=== PATIENT | female | born 1980 | race Caucasian/White ===

== ENCOUNTER 2017-01-09 00:03 | Emergency (ER) | payer BC ==
[2017-01-09 00:46] VITALS: BP 109/73; TEMP 100.8; O2SAT 97
--- NOTE | 2017-01-09 01:10 | ED.PDOC ---
History of Present Illness - General Chief Complaint: Fever Time Seen by Provider: 01/09/17 01:04 Source: patient Exam Limitations: no limitations Additional Information: N/V/D, WATERY, NO BLOOD, LOW GRADE FEVER. IS DRIVING NO RIDE. - History of Present Illness Timing/Duration: other - TODAY Severity: moderate Worsening Factors: nothing Associated Symptoms: nausea/vomiting Allergies/Adverse Reactions: Allergies Sulfa Drugs Allergy (Verified 04/15/15 06:44) Home Medications: Ambulatory Orders Ondansetron [Zofran Odt] 4 mg PO TID PRN #6 tab 01/09/17 Review of Systems - Review of Systems Constitutional: Denies: chills, fever EENTM: Denies: eye pain, blurred vision Respiratory: Denies: cough, short of breath Cardiology: Denies: chest pain, palpitations Gastrointestinal/Abdominal: States: abdominal pain, diarrhea, nausea, vomiting, other - WATERY, NO BLOOD Genitourinary: Denies: dysuria, hematuria Musculoskeletal: Denies: back pain, neck pain Neurological: States: no symptoms reported Endocrine: States: no symptoms reported Hematologic/Lymphatic: States: no symptoms reported Past Medical History (General) - Patient Medical History Hx Seizures: No Hx Stroke: No Hx Asthma: No Hx of COPD: No Hx Cardiac Disorders: No Hx Congestive Heart Failure: No Hx Pacemaker: No Hx Hypertension: No Hx Diabetes: No Hx Renal Disease: No Hx MRSA: No Hx Other - free text: ADHD Surgical History: no surgical history - Vaccination History Hx Tetanus, Diphtheria Vaccination: No Hx Influenza Vaccination: No Hx Pneumococcal Vaccination: No Immunizations Up to Date: No - Social History Hx Tobacco Use: No Hx Alcohol Use: Yes Hx Substance Use: No Hx Substance Use Treatment: No Hx Depression: No Hx Physical Abuse: No Hx Emotional Abuse: No - Female History Patient is a Female of Child Bearing Age (10 -59 yrs old): No Hx Last Menstrual Period: 04/05/15 Patient : No Expected Date of Delivery:: 03/10/14 Family Medical History - Family History Mother Family History: Unknown Living Status: Still Living Hx Family Diabetes: Yes Paternal Grandparents Hx Family Diabetes: Yes Physical Exam - Physical Exam General Appearance: Alert, No apparent distress, Other - APPEARS NOT TO FEEL WELL Eye Exam: bilateral normal Ears, Nose, Throat: hearing grossly normal, normal ENT inspection, other - MM SL DRY Neck: non-tender, supple Respiratory: lungs clear, normal breath sounds, no respiratory distress Cardiovascular/Chest: regular rate, rhythm, no murmur Gastrointestinal/Abdominal: non tender, soft, no organomegaly, other - BS SL HYPER Back Exam: normal inspection, no CVA tenderness, no vertebral tenderness Extremity: normal range of motion, non-tender, normal inspection Neurologic: alert, normal mood/affect Skin Exam: normal color, warm/dry Lymphatic: no adenopathy Progress - Progress Progress: 01/09/17 04:01 NO FURTHER VOMITING OR DIARRHEA, FEELS BETTER, VSS. Departure - Departure Clinical Impression: Gastroenteritis and colitis, viral, Dehydration Time of Disposition: 04:02 Disposition: Discharge to Home or Self Care Condition: Good Departure Forms: ED Discharge - Pt. Copy, Patient Portal Self Enrollment Instructions: DI for Viral Gastroenteritis -- Adult Prescriptions: Ondansetron [Zofran Odt] 4 mg PO TID PRN #6 tab PRN Reason: Nausea/Vomiting Home Medications: Ambulatory Orders Ondansetron [Zofran Odt] 4 mg PO TID PRN #6 tab 01/09/17
[2017-01-09] MEDS ORDERED: METOCLOPRAMIDE HCL INJ 10 MG/2 ML VIAL IV ONE (01:15)
[2017-01-09] MEDS ORDERED: SODIUM CHLORIDE 0.9% 1000ML 1,000 ML IVS ONE (01:15)
== END 2017-01-09 04:11 | disposition home or self-care (01) ==
LOC: ER 00:03
DX: A08.4 Viral intestinal infection, unspecified (principal); E86.0 Dehydration
CPT/HCPCS: 80048; 85025; J2765; J7030

== ENCOUNTER → 2017-10-25 | Outpatient (CLI) | payer BC | END | disposition home or self-care (01) | LOC: GMAL 10:22 | PROVIDERS: ATTEND Family Medicine | DX: Z00.00 Encounter for general adult medical examination without abnormal findings (principal) ==

== ENCOUNTER → 2018-01-24 | Outpatient (CLI) | payer BC | LOC: GMAL 11:05 | PROVIDERS: ATTEND Family Medicine | DX: D50.8 Other iron deficiency anemias (principal); E55.9 Vitamin D deficiency, unspecified ==

== ENCOUNTER → 2018-01-25 | Outpatient (CLI) | payer BC | LOC: GMAL 12:44 | PROVIDERS: ATTEND Family Medicine | DX: N30.00 Acute cystitis without hematuria (principal) ==

== ENCOUNTER 2018-10-08 16:53 | Emergency (ER) | payer BC ==
[2018-10-08] MEDS ORDERED: KETOROLAC TROMETHAMINE INJ 30 MG/ML VIAL IV ONE (17:22)
[2018-10-08] MEDS ORDERED: PROMETHAZINE HCL INJ 12.5 MG in SODIUM CHLORIDE 0.9% 50ML 50 ML IVPB ONE (17:23)
--- NOTE | 2018-10-08 17:27 | ED.PDOC ---
History of Present Illness - General Chief Complaint: GI Problem Stated Complaint: N/V, headache Time Seen by Provider: 10/08/18 17:14 Source: patient Exam Limitations: no limitations - History of Present Illness Initial Comments: Pt treated for URI 9 days ago with steroid injection and Z-devendra. Has had headache and neck stiffness since then. The headache is worse but neck is getting better. Today she strted vomiting. Her son had vomiting 2 days ago Timing/Duration: 24 hours Severity: severe Improving Factors: immobilization Worsening Factors: nothing Associated Symptoms: cough, headaches, nausea/vomiting Allergies/Adverse Reactions: Allergies Sulfa Drugs Allergy (Verified 10/08/18 17:12) Home Medications: Ambulatory Orders Amphetamine-Dextroamphetamine [Adderall Xr 20 mg] 2 cap PO DAILY 10/08/18 Orphenadrine Citrate [Orphenadrine Citrate ER] 100 mg PO BID PRN #15 tab Promethazine Tab [Phenergan Tablet] 25 mg PO .Q4H PRN #15 tab 10/08/18 Review of Systems - Review of Systems Constitutional: Denies: chills, fever EENTM: States: nose congestion Respiratory: States: cough. Denies: short of breath Cardiology: Denies: chest pain Gastrointestinal/Abdominal: States: nausea, vomiting. Denies: abdominal pain, diarrhea Genitourinary: Denies: dysuria, frequency Musculoskeletal: States: no symptoms reported Skin: States: no symptoms reported Neurological: States: no symptoms reported Endocrine: States: no symptoms reported Hematologic/Lymphatic: States: no symptoms reported Past Medical History (General) - Patient Medical History Hx Seizures: No Hx Stroke: No Hx Asthma: No Hx of COPD: No Hx Cardiac Disorders: No Hx Congestive Heart Failure: No Hx Pacemaker: No Hx Hypertension: No Hx Diabetes: No Hx Renal Disease: No Hx MRSA: No Surgical History: no surgical history - Vaccination History Hx Tetanus, Diphtheria Vaccination: No Hx Influenza Vaccination: No Hx Pneumococcal Vaccination: No - Social History Hx Tobacco Use: No Hx Alcohol Use: Yes Hx Substance Use: No Hx Substance Use Treatment: No Hx Depression: No Hx Physical Abuse: No Hx Emotional Abuse: No - Female History Patient is a Female of Child Bearing Age (10 -59 yrs old): Yes Hx Last Menstrual Period: 04/05/15 Patient : No Expected Date of Delivery:: 03/10/14 Family Medical History - Family History Mother Family History: Unknown Living Status: Still Living Hx Family Diabetes: Yes Paternal Grandparents Hx Family Diabetes: Yes Physical Exam - Physical Exam General Appearance: Alert, Anxious, Obvious distress, Other - tearful Eye Exam: bilateral normal Ears, Nose, Throat: normal ENT inspection Neck: full range of motion, supple, normal inspection, other - tender paracervical muscles Respiratory: chest non-tender, lungs clear, normal breath sounds Cardiovascular/Chest: normal peripheral pulses, regular rate, rhythm Gastrointestinal/Abdominal: normal bowel sounds, soft, tenderness - mild Extremity: normal range of motion Neurologic: alert, normal mood/affect, oriented x 3 Skin Exam: normal color, warm/dry Lymphatic: no adenopathy Departure - Departure Clinical Impression: Tension headache Vomiting Qualifiers: Vomiting type: unspecified Vomiting Intractability: non-intractable Nausea presence: with nausea Qualified Code(s): R11.2 - Nausea with vomiting, unspecified Disposition: Discharge to Home or Self Care Departure Forms: ED Discharge - Pt. Copy, Patient Portal Self Enrollment Referrals: Kayden Sabillon III, MD [Primary Care Provider] - 1-2 Weeks Prescriptions: Orphenadrine Citrate [Orphenadrine Citrate ER] 100 mg PO BID PRN #15 tab PRN Reason: Headache Or Mild Pain Promethazine Tab [Phenergan Tablet] 25 mg PO .Q4H PRN #15 tab PRN Reason: Nausea Home Medications: Ambulatory Orders Amphetamine-Dextroamphetamine [Adderall Xr 20 mg] 2 cap PO DAILY 10/08/18 Orphenadrine Citrate [Orphenadrine Citrate ER] 100 mg PO BID PRN #15 tab Promethazine Tab [Phenergan Tablet] 25 mg PO .Q4H PRN #15 tab 10/08/18
[2018-10-08] MEDS ORDERED: SODIUM CHLORIDE 0.9% 1000ML 1,000 ML IVS ONE (17:31)
[2018-10-08] MEDS ORDERED: PROMETHAZINE HCL INJ 25 MG/ML VIAL ONE (17:34)
[2018-10-08] MEDS ORDERED: SODIUM CHLORIDE 0.9% 50ML 50 ML ONE (17:34)
[2018-10-08] MEDS ORDERED: METOCLOPRAMIDE HCL INJ 10 MG/2 ML VIAL IV ONE (18:36)
[2018-10-08] MEDS ORDERED: diphenhydrAMINE HCL 50 MG/ML VIAL IV ONE (18:36)
[2018-10-08 19:14] VITALS: BP 147/93; TEMP 98.1; O2SAT 99
== END 2018-10-08 19:05 | disposition home or self-care (01) ==
LOC: ER 16:53
DX: G44.209 Tension-type headache, unspecified, not intractable (principal); R11.2 Nausea with vomiting, unspecified; Z88.2 Allergy status to sulfonamides
CPT/HCPCS: 36415; 80053; 85025; A4216; J1200; J1885; J2550; J2765; J7030

== ENCOUNTER → 2018-11-02 | Outpatient (CLI) | payer BC ==
--- NOTE | 2018-11-02 10:14 | US ---
EXAM DESCRIPTION: Liver CLINICAL HISTORY: ELEVATED LFTs COMPARISON: Renal sonogram April 03, 2014 TECHNIQUE: Right upper quadrant ultrasound FINDINGS: Pancreas: Visualized portions of the pancreas are unremarkable. Bowel gas obscures some areas. Aorta/inferior vena cava: No aortic aneurysm. Normal inferior vena cava. Liver: The liver is homogeneous in texture with normal echogenicity of the hepatic parenchyma. No focal liver lesion or intrahepatic bile duct dilatation. No liver surface irregularity. Normal appearance of the portal vein and hepatic veins. Gallbladder: Gallbladder appears normal with no intraluminal stones or wall thickening. Common bile duct: Normal caliber measuring 2.1 mm. Right kidney: Renal length is 12.8 cm. Previous right renal measurement was 12.4 cm in March 2014. Normal cortical echogenicity. Cortical thickness is normal. No hydronephrosis is seen. No renal mass or shadowing calculus. IMPRESSION: No diagnostic abnormality is identified on sonographic examination of the right upper quadrant. Electronically signed by: Yannick Lerner MD 11/02/2018 10:13 AM [facility]
== END ==
LOC: US 08:46
PROVIDERS: ATTEND Family Medicine
DX: R94.5 Abnormal results of liver function studies (principal)

== ENCOUNTER → 2020-05-29 | Outpatient (CLI) | payer BC | LOC: GMAL 10:39 | PROVIDERS: ATTEND Family Medicine | DX: Z00.01 Encounter for general adult medical examination with abnormal findings (principal); E55.9 Vitamin D deficiency, unspecified; E53.8 Deficiency of other specified B group vitamins ==